=== PATIENT | male | born 1940 | race Caucasian/White ===

== ENCOUNTER 2019-05-16 02:36 | Observation (INO) ==
[2019-05-16 03:21] LABS: Basophils % 0.7 %; Eosinophils # 0.2 K/mcL (0.0-0.6); Eosinophils % 3.2 %; Hemoglobin 15.8 g/dL (12.9-16.9); Immature Granulocytes % 0.7 % (0-4); Lymphocytes # 2.3 K/mcL (0.6-4.6); Lymphocytes % 39.7 %; Mean Corpuscular HGB Conc 35.1 g/dL (31.6-35.5); Mean Corpuscular Hemoglobin 32.2 pg (28.0-33.3); Mean Corpuscular Volume 91.8 fL (83.0-100.0); Mean Platelet Volume 9.9 fL (9.4-12.4); Monocytes # 0.8 K/mcL (0.0-1.3); Monocytes % 13.2 %; Neutrophils # 2.5 K/mcL (1.6-8.9); Platelet Count 203 K/mcL (140-400); Red Cell Distribution Width 12.1 % (11.5-14.5); Segmented Neutrophils % 42.5 %; White Blood Count 5.9 K/mcL (4.3-11.1)
[2019-05-16 03:39] LABS: Alanine Aminotransferase 15 Units/L (7-52); Albumin 4.2 g/dL (3.5-5.7); Albumin/Globulin Ratio 1.6 (1.1-2.2); Alkaline Phosphatase 101 Units/L (34-104); Aspartate Amino Transferase 16 Units/L (13-39); BUN/Creatinine Ratio 21 (6-26); Bilirubin,Total 0.3 mg/dL (0.3-1.0); Blood Urea Nitrogen 21 mg/dL (8-23); Calcium 9.5 mg/dL (8.6-10.3); Carbon Dioxide 27 mEq/L (23-29); Chloride 105 mEq/L (98-107); Globulin 2.7 g/dL (2.4-3.5); Glucose 101 mg/dL (70-105); Osmolality,Calculated 297 (280-300); Potassium 4.1 mEq/L (3.5-5.1); Sodium 142 mEq/L (136-145); Total Protein 6.9 g/dL (6.4-8.9); eGFR For African Americans > 60 (> 60); eGFR For Non-African Americans > 60 (> 60)
[2019-05-16 03:40] LABS: Troponin I < 0.03 ng/mL (< 0.04)
[2019-05-16] MEDS ORDERED: 0.9 % Sodium Chloride 1,000 ML IVC SCH (09:00)
[2019-05-16] MEDS: Carbamide Peroxide 150 DROP/15 ML BOTTLE RIGHT EAR SCH ×2 (11:33→19:58)
[2019-05-16] MEDS: *HR* Heparin 5,000 UNIT/ML VIAL SQ SCH ×2 (14:48→22:36)
[2019-05-17] MEDS: *HR* Heparin 5,000 UNIT/ML VIAL SQ SCH (05:51)
[2019-05-17] MEDS: Carbamide Peroxide 150 DROP/15 ML BOTTLE RIGHT EAR SCH (08:00)
[2019-05-17 12:04] VITALS: BP 143/74
== END 2019-05-17 13:39 | disposition home or self-care (01) ==
LOC: SUATTDRO → 2ANU 02:36 → EMEROOARM 02:36 → SUATTDRO 08:36 → 2ANU 09:37
PROVIDERS: ADMIT Family Medicine; ATTEND Internal Medicine

== ENCOUNTER 2020-07-23 10:25 | Inpatient (IN) ==
[~2020-07-23 10:25] MED LIST: Dextrose 50 % in Water (Vial) 30 ML, Sodium Bicarbonate 20 MEQ, Lidocaine 1% 5 ML, Insu... TH ONE; Dextrose 50 % in Water (Vial) 30 ML, Sodium Bicarbonate 20 MEQ, Potassium Chloride 15 M... TH ONE; Heparin 15,000 UNIT in 0.9 % Sodium Chloride 500 ML IV ONE; Insulin Human Regular 100 UNIT in 0.9 % Sodium Chloride 100 ML IV PRN; Norepinephrine 4 MG in 0.9 % Sodium Chloride 250 ML IVC PRN
[2020-07-23] MEDS ORDERED: NiCARdipine 2.5 MG/10 ML Syringe IVPB ONE (10:35)
[2020-07-23] MEDS ORDERED: *HR* Midazolam HCl 5 MG/5 ML VIAL IVP ONE (10:37)
[2020-07-23] MEDS ORDERED: *HR* FentaNYL (PF) 1,000 MCG/20 ML VIAL ONE ×2 (10:37→10:41)
[2020-07-23] MEDS ORDERED: *HR* Propofol 200 MG/20 ML VIAL IVP ONE (10:38)
[2020-07-23] MEDS ORDERED: *HR* Rocuronium Bromide 50 MG/5 ML VIAL ONE ×3 (10:45→15:52)
[2020-07-23] MEDS ORDERED: Famotidine 20 MG/2 ML VIAL ONE (10:45)
[2020-07-23] MEDS ORDERED: *HR* Magnesium Sulfate 1 GM/2 ML VIAL ONE (10:45)
[2020-07-23] MEDS ORDERED: Lidocaine 2% Syringe 100 MG/5 ML ONE (10:45)
[2020-07-23] MEDS ORDERED: Tranexamic Acid 1,000 MG/10 ML VIAL ONE (10:45)
[2020-07-23] MEDS ORDERED: CeFAZolin Syr 2,000MG/20 ML 2,000 MG/20 ML SYRINGE IVPB ONE (10:52)
[2020-07-23] MEDS ORDERED: Aspirin 81 MG TAB.CHEW PO STA (10:52)
[2020-07-23] MEDS: Chlorhexidine Rinse 15 ML MOUTHWASH MM SCH ×3 (11:31→20:14)
[2020-07-23] MEDS ORDERED: Albumin Human 25% 25 GM/100 ML IV.SOLN IVPB ONE (11:56)
[2020-07-23] MEDS ORDERED: Tranexamic Acid 1,000 MG/10 ML VIAL IR ONE (11:56)
[2020-07-23] MEDS ORDERED: Mannitol 25% vial 12.5 GM/50 ML VIAL IVPB ONE (11:56)
[2020-07-23] MEDS ORDERED: Lidocaine 2% Syringe 100 MG/5 ML IVP ONE (11:56)
[2020-07-23] MEDS ORDERED: *HR* Magnesium Sulfate 2 GM/50 ML PIGGYBACK IVPB ONE (11:56)
[2020-07-23] MEDS ORDERED: *HR* Phenylephrine 10 MG/ML VIAL IVC ONE (11:56)
[2020-07-23] MEDS ORDERED: *HR* Heparin 10,000 UNIT/10 ML VIAL IR ONE (11:56)
[2020-07-23 12:44] LABS: ABG Base Excess 0 mEq/L (-2 to 3); ABG Chloride 107 mEq/L (98-107); ABG Glucose 87 mg/dL (60-95); ABG HCO3 26 mEq/L (21-27); ABG Ionized Calcium 1.24 mmol/L (1.15-1.35); ABG Oxygen Saturation 100 % (95-98); ABG PCO2 45 mmHg (35-45); ABG PH 7.37 pH Units (7.32-7.45); ABG PO2 365 mmHg (85-104); ABG TCO2 27 mEq/L (20-26)
[2020-07-23 13:54] LABS: ABG Base Excess -1 mEq/L (-2 to 3); ABG Chloride 109 mEq/L (98-107); ABG Glucose 95 mg/dL (60-95); ABG HCO3 24 mEq/L (21-27); ABG Ionized Calcium 1.12 mmol/L (1.15-1.35); ABG Oxygen Saturation 100 % (95-98); ABG PCO2 39 mmHg (35-45); ABG PH 7.39 pH Units (7.32-7.45); ABG PO2 222 mmHg (85-104); ABG TCO2 25 mEq/L (20-26)
[2020-07-23 15:40] LABS: ABG Base Excess 0 mEq/L (-2 to 3); ABG Chloride 104 mEq/L (98-107); ABG Glucose 131 mg/dL (60-95); ABG HCO3 25 mEq/L (21-27); ABG Oxygen Saturation 100 % (95-98); ABG PCO2 41 mmHg (35-45); ABG PH 7.39 pH Units (7.32-7.45); ABG PO2 542 mmHg (85-104); ABG TCO2 26 mEq/L (20-26)
[2020-07-23] MEDS ORDERED: Calcium Gluconate 1,000 MG/10 ML VIAL ONE (15:41)
[2020-07-23] MEDS ORDERED: Protamine Sulfate 250 MG/25 ML VIAL IVP ONE (15:41)
[2020-07-23 16:08] LABS: ABG Base Excess -2 mEq/L (-2 to 3); ABG Chloride 107 mEq/L (98-107); ABG Glucose 100 mg/dL (60-95); ABG HCO3 23 mEq/L (21-27); ABG Ionized Calcium 1.18 mmol/L (1.15-1.35); ABG Oxygen Saturation 90 % (95-98); ABG PCO2 41 mmHg (35-45); ABG PH 7.36 pH Units (7.32-7.45); ABG PO2 61 mmHg (85-104); ABG TCO2 24 mEq/L (20-26)
[2020-07-23] MEDS ORDERED: Potassium Chloride 40 MEQ/200 ML BAG IVPB PRN (16:21)
[2020-07-23] MEDS ORDERED: Ondansetron 4 MG/2 ML VIAL IVP PRN (16:21)
[2020-07-23] MEDS ORDERED: Acetaminophen 650 MG RECTAL SUPP RC PRN (16:21)
[2020-07-23] MEDS ORDERED: Naloxone 0.4 MG/ML INJ IVP PRN (16:21)
[2020-07-23] MEDS ORDERED: Acetaminophen 325 MG TABLET PO PRN (16:21)
[2020-07-23] MEDS ORDERED: Calcium Gluconate 1gm/50mL 1 GM/50 ML BAG IVPB PRN (16:21)
[2020-07-23] MEDS ORDERED: Insulin Regular, Human 100 UNIT/ML IV PRN (16:21)
[2020-07-23] MEDS ORDERED: *HR* Dextrose 50 % in Water (Vial) 50 ML VIAL IVP PRN (16:21)
[2020-07-23] MEDS ORDERED: Albumin Human 5% 12.5 GM/250 ML IV.SOLN IVPB PRN (16:27)
[2020-07-23] MEDS ORDERED: 0.9 % Sodium Chloride w KCl 20 MEQ/1,000 ML MLS IVC SCH (16:30)
[2020-07-23 17:24] LABS: ABG Base Excess -2 mEq/L (-2 to 3); ABG HCO3 24 mEq/L (21-27); ABG Oxygen Saturation 95 % (95-98); ABG PCO2 45 mmHg (35-45); ABG PH 7.34 pH Units (7.32-7.45); ABG PO2 80 mmHg (85-104); ABG TCO2 26 mEq/L (20-26); Blood Gas Modality ASSIST CONTROL; Blood Gas VT 550 cc
[2020-07-23 17:28] LABS: Basophils % 0.3 %; Eosinophils % 0.3 %; Hematocrit 34.8 % (37.5-50.1); Hemoglobin 11.3 g/dL (12.9-16.9); Immature Platelets 4.2 % (1.1-6.1); Lymphocytes # 2.1 K/mcL (0.6-4.6); Lymphocytes % 18.6 %; Mean Corpuscular HGB Conc 32.5 g/dL (31.6-35.5); Mean Corpuscular Hemoglobin 29.3 pg (28.0-33.3); Mean Corpuscular Volume 90.2 fL (83.0-100.0); Mean Platelet Volume 9.9 fL (9.4-12.4); Monocytes # 1.1 K/mcL (0.0-1.3); Monocytes % 9.5 %; Neutrophils # 8.1 K/mcL (1.6-8.9); Platelet Count 103 K/mcL (140-400); Red Blood Count 3.86 M/mcL (4.19-5.50); Red Cell Distribution Width 12.5 % (11.5-14.5); Segmented Neutrophils % 70.3 %; White Blood Count 11.5 K/mcL (4.3-11.1)
[2020-07-23 17:35] LABS: INR 1.4; Prothrombin Time 15.9 Seconds (9.4-12.1)
[2020-07-23 17:39] LABS: Activated Partial Thrombo Time 28.9 Seconds (26.0-36.0)
[2020-07-23 17:41] LABS: BUN/Creatinine Ratio 20 (6-26); Blood Urea Nitrogen 19 mg/dL (8-23); Calcium 8.5 mg/dL (8.6-10.3); Carbon Dioxide 28 mEq/L (23-29); Chloride 109 mEq/L (98-107); Glucose 97 mg/dL (70-105); Magnesium 3.4 mg/dL (1.6-2.6); Osmolality,Calculated 294 (280-300); Potassium 3.7 mEq/L (3.5-5.1); Sodium 141 mEq/L (136-145); eGFR For African Americans > 60 (> 60); eGFR For Non-African Americans > 60 (> 60)
[2020-07-23] MEDS: niCARdipine 20 MG/200 ML MLS IVC SCH ×2 (17:45→21:30)
[2020-07-23] MEDS: Metoclopramide 10 MG/2 ML VIAL IVP SCH ×2 (17:57→23:42)
[2020-07-23] MEDS: *HR* FentaNYL (PF) 100 MCG/2 ML VIAL IVP PRN ×3 (17:58→23:08)
[2020-07-23] MEDS: Pantoprazole 40 MG VIAL IVP SCH (18:05)
[2020-07-23] MEDS: *HR* OxyCODONE/APAP 5/325 TABLET PO PRN ×2 (18:59→21:30)
[2020-07-23] MEDS: Norepinephrine 4 MG/254 ML IV.SOLN IVC SCH (20:08)
[2020-07-23] MEDS: CeFAZolin 2 GM/120 ML BAG IVPB SCH (20:09)
[2020-07-23 20:36] LABS: ABG Base Excess -4 mEq/L (-2 to 3); ABG HCO3 21 mEq/L (21-27); ABG Oxygen Saturation 97 % (95-98); ABG PCO2 39 mmHg (35-45); ABG PH 7.34 pH Units (7.32-7.45); ABG PO2 98 mmHg (85-104); ABG TCO2 23 mEq/L (20-26); Blood Gas Modality CPAP/PS; Blood Gas Pressure Support 5 cm H2O
[2020-07-23 21:04] LABS: ABG Base Excess -3 mEq/L (-2 to 3); ABG HCO3 22 mEq/L (21-27); ABG Oxygen Saturation 99 % (95-98); ABG PCO2 40 mmHg (35-45); ABG PH 7.36 pH Units (7.32-7.45); ABG PO2 132 mmHg (85-104); ABG TCO2 24 mEq/L (20-26); Blood Gas Modality CPAP/PS; Blood Gas Pressure Support 5 cm H2O
[2020-07-24] MEDS: niCARdipine 20 MG/200 ML MLS IVC SCH ×8 (02:47→23:18)
[2020-07-24] MEDS: CeFAZolin 2 GM/120 ML BAG IVPB SCH (03:04)
[2020-07-24 03:07] LABS: Basophils % 0.1 %; Hematocrit 31.9 % (37.5-50.1); Hemoglobin 10.7 g/dL (12.9-16.9); Immature Granulocytes % 0.7 % (0-4); Lymphocytes # 1.2 K/mcL (0.6-4.6); Lymphocytes % 8.7 %; Mean Corpuscular HGB Conc 33.5 g/dL (31.6-35.5); Mean Corpuscular Hemoglobin 29.8 pg (28.0-33.3); Mean Corpuscular Volume 88.9 fL (83.0-100.0); Mean Platelet Volume 10.1 fL (9.4-12.4); Monocytes # 1.7 K/mcL (0.0-1.3); Monocytes % 12.6 %; Neutrophils # 10.7 K/mcL (1.6-8.9); Platelet Count 103 K/mcL (140-400); Red Blood Count 3.59 M/mcL (4.19-5.50); Red Cell Distribution Width 12.7 % (11.5-14.5); Segmented Neutrophils % 77.9 %; White Blood Count 13.7 K/mcL (4.3-11.1)
[2020-07-24 03:19] LABS: INR 1.3; Prothrombin Time 14.7 Seconds (9.4-12.1)
[2020-07-24 03:21] LABS: Activated Partial Thrombo Time 27.1 Seconds (26.0-36.0)
[2020-07-24 04:29] LABS: BUN/Creatinine Ratio 24 (6-26); Blood Urea Nitrogen 24 mg/dL (8-23); Calcium 8.1 mg/dL (8.6-10.3); Carbon Dioxide 23 mEq/L (23-29); Chloride 106 mEq/L (98-107); Glucose 145 mg/dL (70-105); Magnesium 2.4 mg/dL (1.6-2.6); Osmolality,Calculated 289 (280-300); Sodium 136 mEq/L (136-145); eGFR For African Americans > 60 (> 60); eGFR For Non-African Americans > 60 (> 60)
[2020-07-24] MEDS: *HR* FentaNYL (PF) 100 MCG/2 ML VIAL IVP PRN ×2 (04:36→10:39)
[2020-07-24] MEDS: Metoclopramide 10 MG/2 ML VIAL IVP SCH ×4 (05:13→23:13)
[2020-07-24] MEDS: Aspirin Enteric Coated 81 MG Tablet PO SCH (07:48)
[2020-07-24] MEDS: *HR* OxyCODONE/APAP 5/325 TABLET PO PRN (07:48)
[2020-07-24] MEDS: Furosemide 20 MG/2 ML VIAL IVP SCH ×2 (07:48→20:25)
[2020-07-24] MEDS: Chlorhexidine Rinse 15 ML MOUTHWASH MM SCH ×2 (07:48→20:25)
[2020-07-24] MEDS: Pantoprazole 40 MG VIAL IVP SCH (07:49)
[2020-07-24] MEDS ORDERED: D5% in Water 1,000 ML IVC PRN (07:52)
[2020-07-24] MEDS ORDERED: Dextrose Gel 15 GM/37.5 ML TUBE PO PRN ×2 (07:52)
[2020-07-24] MEDS ORDERED: *HR* Dextrose 50 % in Water (Vial) 50 ML VIAL IVP PRN (07:52)
[2020-07-24] MEDS: ALPRAZolam 0.5 MG TABLET PO PRN ×2 (08:45→20:25)
[2020-07-24] MEDS: *HR* Heparin 5,000 UNIT/ML VIAL SQ SCH ×2 (10:59→18:39)
[2020-07-24] MEDS: Ketorolac 15 MG/ML VIAL IVP SCH ×3 (11:00→23:12)
[2020-07-24] MEDS: Norepinephrine 4 MG/254 ML IV.SOLN IVC SCH (15:35)
[2020-07-24] MEDS: Insulin LISPRO 300 UNITS/3 ML VIAL SUBQ SCH (16:35)
[2020-07-24] MEDS ORDERED: Insulin LISPRO 300 UNITS/3 ML VIAL SUBQ SCH (21:00)
[2020-07-25 03:19] LABS: Eosinophils % 0.1 %; Hematocrit 28.2 % (37.5-50.1); Immature Granulocytes % 0.4 % (0-4); Mean Platelet Volume 10.5 fL (9.4-12.4); Segmented Neutrophils % 71.6 %
[2020-07-25 03:21] LABS: Basophils % 0.3 %; Hemoglobin 9.2 g/dL (12.9-16.9); Immature Platelets 5.8 % (1.1-6.1); Lymphocytes # 1.4 K/mcL (0.6-4.6); Lymphocytes % 13.2 %; Mean Corpuscular HGB Conc 32.6 g/dL (31.6-35.5); Mean Corpuscular Hemoglobin 29.2 pg (28.0-33.3); Mean Corpuscular Volume 89.5 fL (83.0-100.0); Monocytes # 1.5 K/mcL (0.0-1.3); Monocytes % 14.4 %; Neutrophils # 7.4 K/mcL (1.6-8.9); Red Blood Count 3.15 M/mcL (4.19-5.50); Red Cell Distribution Width 13.1 % (11.5-14.5); White Blood Count 10.3 K/mcL (4.3-11.1)
[2020-07-25 03:34] LABS: BUN/Creatinine Ratio 29 (6-26); Blood Urea Nitrogen 35 mg/dL (8-23); Calcium 7.8 mg/dL (8.6-10.3); Carbon Dioxide 25 mEq/L (23-29); Chloride 105 mEq/L (98-107); Glucose 105 mg/dL (70-105); Osmolality,Calculated 290 (280-300); Potassium 4.2 mEq/L (3.5-5.1); Sodium 136 mEq/L (136-145); eGFR For African Americans > 60 (> 60); eGFR For Non-African Americans 57 (> 60)
[2020-07-25 04:13] LABS: Platelet Count 80 K/mcL (140-400)
[2020-07-25] MEDS: Metoclopramide 10 MG/2 ML VIAL IVP SCH (05:17)
[2020-07-25] MEDS: Ketorolac 15 MG/ML VIAL IVP SCH (05:17)
[2020-07-25] MEDS: *HR* Heparin 5,000 UNIT/ML VIAL SQ SCH ×2 (05:17→20:04)
[2020-07-25] MEDS: Insulin LISPRO 300 UNITS/3 ML VIAL SUBQ SCH ×4 (08:18→20:05)
[2020-07-25] MEDS ORDERED: polyethylene glycoL 3350 17 GM POWD.PACK PO SCH (09:00)
[2020-07-25] MEDS: Chlorhexidine Rinse 15 ML MOUTHWASH MM SCH ×2 (09:07→20:13)
[2020-07-25] MEDS: Aspirin Enteric Coated 81 MG Tablet PO SCH (09:07)
[2020-07-25] MEDS: niCARdipine 20 MG/200 ML MLS IVC SCH (09:07)
[2020-07-25] MEDS: Pantoprazole 40 MG VIAL IVP SCH (09:08)
[2020-07-25] MEDS: Furosemide 20 MG/2 ML VIAL IVP SCH (09:08)
[2020-07-25] MEDS ORDERED: Docusate Oral Soln 100 MG/10 ML UDC PO SCH (09:21)
[2020-07-25] MEDS ORDERED: Amiodarone Premix 150 MG/100 ML BAG IVPB ONE ×3 (09:22→09:30)
[2020-07-25] MEDS ORDERED: Naloxone 0.4 MG/ML INJ IVP PRN (09:23)
[2020-07-25] MEDS ORDERED: Dextrose Gel 15 GM/37.5 ML TUBE PO PRN (09:23)
[2020-07-25] MEDS ORDERED: Acetaminophen 325 MG TABLET PO PRN (09:23)
[2020-07-25] MEDS ORDERED: *HR* Dextrose 50 % in Water (Vial) 50 ML VIAL IVP PRN (09:23)
[2020-07-25] MEDS ORDERED: Insulin Regular, Human 100 UNIT/ML IV PRN (09:23)
[2020-07-25] MEDS ORDERED: Amiodarone Premix 360 MG/200 ML BAG IVC ONE ×2 (09:38→09:43)
[2020-07-25] MEDS: ALPRAZolam 0.5 MG TABLET PO PRN (11:03)
[2020-07-25] MEDS: Amiodarone Premix 360 MG/200 ML BAG IVC SCH (15:43)
[2020-07-26] MEDS: ALPRAZolam 0.5 MG TABLET PO PRN (04:04)
[2020-07-26] MEDS: *HR* Heparin 5,000 UNIT/ML VIAL SQ SCH (06:08)
[2020-07-26 06:16] LABS: Basophils % 0.2 %
[2020-07-26 06:18] LABS: Eosinophils % 0.3 %; Hematocrit 27.2 % (37.5-50.1); Hemoglobin 9.2 g/dL (12.9-16.9); Immature Granulocytes % 0.6 % (0-4); Immature Platelets 6.4 % (1.1-6.1); Lymphocytes # 1.1 K/mcL (0.6-4.6); Lymphocytes % 9.9 %; Mean Corpuscular HGB Conc 33.8 g/dL (31.6-35.5); Mean Corpuscular Hemoglobin 29.8 pg (28.0-33.3); Mean Platelet Volume 10.7 fL (9.4-12.4); Monocytes # 1.4 K/mcL (0.0-1.3); Neutrophils # 8.8 K/mcL (1.6-8.9); Nucleated Red Blood Cells 1.2 /100 WBC (0); Platelet Count 82 K/mcL (140-400); Red Blood Count 3.09 M/mcL (4.19-5.50); Red Cell Distribution Width 13.3 % (11.5-14.5); White Blood Count 11.4 K/mcL (4.3-11.1)
[2020-07-26 08:00] LABS: BUN/Creatinine Ratio 30 (6-26); Blood Urea Nitrogen 33 mg/dL (8-23); Calcium 8.5 mg/dL (8.6-10.3); Carbon Dioxide 26 mEq/L (23-29); Chloride 98 mEq/L (98-107); Glucose 117 mg/dL (70-105); Osmolality,Calculated 280 (280-300); Potassium 4.1 mEq/L (3.5-5.1); Sodium 131 mEq/L (136-145); eGFR For African Americans > 60 (> 60); eGFR For Non-African Americans > 60 (> 60)
[2020-07-26] MEDS: Pantoprazole 40 MG VIAL IVP SCH (08:21)
[2020-07-26] MEDS: Chlorhexidine Rinse 15 ML MOUTHWASH MM SCH ×2 (08:21→20:21)
[2020-07-26] MEDS: Ondansetron 4 MG/2 ML VIAL IVP PRN (08:22)
[2020-07-26] MEDS: Insulin LISPRO 300 UNITS/3 ML VIAL SUBQ SCH ×4 (08:23→20:21)
[2020-07-26] MEDS ORDERED: 0.9 % Sodium Chloride 500 ML ONE (09:04)
[2020-07-26] MEDS: Aspirin Enteric Coated 81 MG Tablet PO SCH (11:40)
[2020-07-26] MEDS: polyethylene glycoL 3350 17 GM POWD.PACK PO SCH (11:40)
[2020-07-26] MEDS: Amiodarone Premix 360 MG/200 ML BAG IVC SCH (14:18)
[2020-07-26] MEDS ORDERED: Furosemide 20 MG/2 ML VIAL IVP ONE (14:54)
[2020-07-26] MEDS: Ibuprofen 600 MG TABLET PO PRN (15:28)
[2020-07-27 00:51] LABS: Basophils % 0.4 %; Eosinophils # 0.2 K/mcL (0.0-0.6); Eosinophils % 2.6 %; Hematocrit 32.7 % (37.5-50.1); Hemoglobin 10.4 g/dL (12.9-16.9); Immature Granulocytes % 0.5 % (0-4); Lymphocytes # 1.4 K/mcL (0.6-4.6); Lymphocytes % 14.5 %; Mean Corpuscular HGB Conc 31.8 g/dL (31.6-35.5); Mean Corpuscular Hemoglobin 29.6 pg (28.0-33.3); Mean Corpuscular Volume 93.2 fL (83.0-100.0); Mean Platelet Volume 11.6 fL (9.4-12.4); Monocytes # 1.4 K/mcL (0.0-1.3); Monocytes % 14.7 %; Neutrophils # 6.3 K/mcL (1.6-8.9); Platelet Count 102 K/mcL (140-400); Red Blood Count 3.51 M/mcL (4.19-5.50); Red Cell Distribution Width 13.2 % (11.5-14.5); Segmented Neutrophils % 67.3 %; White Blood Count 9.4 K/mcL (4.3-11.1)
[2020-07-27 01:28] LABS: BUN/Creatinine Ratio 28 (6-26); Blood Urea Nitrogen 32 mg/dL (8-23); Calcium 8.5 mg/dL (8.6-10.3); Carbon Dioxide 18 mEq/L (23-29); Chloride 100 mEq/L (98-107); Glucose 117 mg/dL (70-105); Osmolality,Calculated 280 (280-300); Potassium 4.5 mEq/L (3.5-5.1); Sodium 131 mEq/L (136-145); eGFR For African Americans > 60 (> 60); eGFR For Non-African Americans > 60 (> 60)
[2020-07-27] MEDS: Insulin LISPRO 300 UNITS/3 ML VIAL SUBQ SCH ×4 (08:12→20:43)
[2020-07-27] MEDS: polyethylene glycoL 3350 17 GM POWD.PACK PO SCH (08:37)
[2020-07-27] MEDS: Aspirin Enteric Coated 81 MG Tablet PO SCH (08:37)
[2020-07-27] MEDS: Chlorhexidine Rinse 15 ML MOUTHWASH MM SCH ×2 (08:38→21:31)
[2020-07-27] MEDS: Pantoprazole 40 MG VIAL IVP SCH (08:38)
[2020-07-27] MEDS: Furosemide 40 MG TABLET PO SCH (10:03)
[2020-07-27] MEDS: *HR* Amiodarone 200 MG TABLET PO SCH ×2 (10:03→21:30)
[2020-07-27] MEDS: *HR* Heparin 5,000 UNIT/ML VIAL SQ SCH (16:17)
[2020-07-28] MEDS: *HR* Heparin 5,000 UNIT/ML VIAL SQ SCH ×2 (05:08→17:05)
[2020-07-28] MEDS: Insulin LISPRO 300 UNITS/3 ML VIAL SUBQ SCH ×4 (08:48→20:42)
[2020-07-28] MEDS: Pantoprazole 40 MG VIAL IVP SCH (08:57)
[2020-07-28] MEDS: Aspirin Enteric Coated 81 MG Tablet PO SCH (08:57)
[2020-07-28] MEDS: polyethylene glycoL 3350 17 GM POWD.PACK PO SCH (08:57)
[2020-07-28] MEDS: Furosemide 40 MG TABLET PO SCH (08:57)
[2020-07-28] MEDS: *HR* Amiodarone 200 MG TABLET PO SCH ×2 (08:57→21:15)
[2020-07-28] MEDS: Chlorhexidine Rinse 15 ML MOUTHWASH MM SCH ×2 (08:57→21:13)
[2020-07-28] MEDS ORDERED: ALPRAZolam 0.25 MG TABLET PO PRN (13:39)
[2020-07-28] MEDS: Ibuprofen 600 MG TABLET PO PRN (21:15)
[2020-07-29 01:54] LABS: Basophils % 0.4 %; Eosinophils # 0.3 K/mcL (0.0-0.6); Eosinophils % 6.3 %; Hematocrit 23.8 % (37.5-50.1); Immature Granulocytes % 0.8 % (0-4); Lymphocytes # 0.8 K/mcL (0.6-4.6); Lymphocytes % 16.3 %; Mean Corpuscular HGB Conc 32.4 g/dL (31.6-35.5); Mean Corpuscular Hemoglobin 29.2 pg (28.0-33.3); Mean Corpuscular Volume 90.2 fL (83.0-100.0); Mean Platelet Volume 10.6 fL (9.4-12.4); Monocytes # 1.1 K/mcL (0.0-1.3); Monocytes % 20.6 %; Neutrophils # 2.8 K/mcL (1.6-8.9); Platelet Count 157 K/mcL (140-400); Red Blood Count 2.64 M/mcL (4.19-5.50); Red Cell Distribution Width 13.2 % (11.5-14.5); Segmented Neutrophils % 55.6 %; White Blood Count 5.1 K/mcL (4.3-11.1)
[2020-07-29 02:02] LABS: BUN/Creatinine Ratio 24 (6-26); Blood Urea Nitrogen 26 mg/dL (8-23); Calcium 8.2 mg/dL (8.6-10.3); Carbon Dioxide 26 mEq/L (23-29); Chloride 100 mEq/L (98-107); Glucose 124 mg/dL (70-105); Hemoglobin 7.7 g/dL (12.9-16.9); Osmolality,Calculated 282 (280-300); Potassium 3.9 mEq/L (3.5-5.1); Sodium 133 mEq/L (136-145); eGFR For African Americans > 60 (> 60); eGFR For Non-African Americans > 60 (> 60)
[2020-07-29] MEDS: *HR* Heparin 5,000 UNIT/ML VIAL SQ SCH ×2 (05:56→17:35)
[2020-07-29] MEDS: Aspirin Enteric Coated 81 MG Tablet PO SCH (07:37)
[2020-07-29] MEDS: Furosemide 40 MG TABLET PO SCH (07:37)
[2020-07-29] MEDS: Chlorhexidine Rinse 15 ML MOUTHWASH MM SCH ×2 (07:38→21:35)
[2020-07-29] MEDS: Pantoprazole 40 MG VIAL IVP SCH (07:38)
[2020-07-29] MEDS: *HR* Amiodarone 200 MG TABLET PO SCH ×2 (07:38→21:34)
[2020-07-29] MEDS: polyethylene glycoL 3350 17 GM POWD.PACK PO SCH (07:38)
[2020-07-29] MEDS: Insulin LISPRO 300 UNITS/3 ML VIAL SUBQ SCH ×4 (08:47→21:34)
[2020-07-29] MEDS: Ibuprofen 600 MG TABLET PO PRN (17:34)
[2020-07-29] MEDS: ALPRAZolam 0.5 MG TABLET PO PRN (21:33)
[2020-07-30 03:11] LABS: Basophils % 0.7 %; Eosinophils # 0.4 K/mcL (0.0-0.6); Eosinophils % 9.7 %; Hematocrit 26.9 % (37.5-50.1); Hemoglobin 8.9 g/dL (12.9-16.9); Lymphocytes # 0.8 K/mcL (0.6-4.6); Lymphocytes % 19.2 %; Mean Corpuscular HGB Conc 33.1 g/dL (31.6-35.5); Mean Corpuscular Hemoglobin 30.3 pg (28.0-33.3); Mean Corpuscular Volume 91.5 fL (83.0-100.0); Monocytes # 0.8 K/mcL (0.0-1.3); Monocytes % 19.9 %; Platelet Count 193 K/mcL (140-400); Red Blood Count 2.94 M/mcL (4.19-5.50); Red Cell Distribution Width 13.2 % (11.5-14.5); Segmented Neutrophils % 49.5 %
[2020-07-30 03:31] LABS: BUN/Creatinine Ratio 22 (6-26); Blood Urea Nitrogen 23 mg/dL (8-23); Calcium 8.5 mg/dL (8.6-10.3); Carbon Dioxide 28 mEq/L (23-29); Chloride 103 mEq/L (98-107); Glucose 99 mg/dL (70-105); Osmolality,Calculated 288 (280-300); Potassium 3.9 mEq/L (3.5-5.1); Sodium 137 mEq/L (136-145); eGFR For African Americans > 60 (> 60); eGFR For Non-African Americans > 60 (> 60)
[2020-07-30 04:23] LABS: Platelet Estimate Normal (Normal)
[2020-07-30] MEDS: *HR* Heparin 5,000 UNIT/ML VIAL SQ SCH ×2 (05:28→18:41)
[2020-07-30] MEDS: Pantoprazole 40 MG VIAL IVP SCH (09:02)
[2020-07-30] MEDS: Chlorhexidine Rinse 15 ML MOUTHWASH MM SCH ×2 (09:03→21:16)
[2020-07-30] MEDS: Aspirin Enteric Coated 81 MG Tablet PO SCH (09:03)
[2020-07-30] MEDS: polyethylene glycoL 3350 17 GM POWD.PACK PO SCH (09:03)
[2020-07-30] MEDS: Furosemide 40 MG TABLET PO SCH (09:03)
[2020-07-30] MEDS: *HR* Amiodarone 200 MG TABLET PO SCH ×2 (09:03→21:17)
[2020-07-30] MEDS: Insulin LISPRO 300 UNITS/3 ML VIAL SUBQ SCH ×4 (09:04→21:17)
[2020-07-30] MEDS: Ibuprofen 600 MG TABLET PO PRN (16:00)
[2020-07-30] MEDS: Ondansetron 4 MG/2 ML VIAL IVP PRN (23:25)
[2020-07-31] MEDS: ALPRAZolam 0.5 MG TABLET PO PRN (01:10)
[2020-07-31] MEDS: *HR* Heparin 5,000 UNIT/ML VIAL SQ SCH (05:20)
[2020-07-31] MEDS: *HR* Amiodarone 200 MG TABLET PO SCH (09:23)
[2020-07-31] MEDS: Aspirin Enteric Coated 81 MG Tablet PO SCH (09:23)
[2020-07-31] MEDS: Furosemide 40 MG TABLET PO SCH (09:24)
[2020-07-31] MEDS: polyethylene glycoL 3350 17 GM POWD.PACK PO SCH (09:25)
[2020-07-31] MEDS: Chlorhexidine Rinse 15 ML MOUTHWASH MM SCH (09:25)
[2020-07-31] MEDS: Pantoprazole 40 MG VIAL IVP SCH (09:25)
[2020-07-31] MEDS: Insulin LISPRO 300 UNITS/3 ML VIAL SUBQ SCH ×2 (09:48→11:28)
[2020-07-31 16:04] VITALS: BP 111/59; PULSE 79; TEMP 98.2; O2SAT 93
[2020-07-31 16:46] LABS: Adenovirus Not Detected (Not Detect); Bordetella Pertussis Not Detected (Not Detect); Chlamydophila pneumoniae Not Detected (Not Detect); Coronavirus 229E Not Detected (Not Detect); Coronavirus HKU1 Not Detected (Not Detect); Coronavirus NL63 Not Detected (Not Detect); Coronavirus OC43 Not Detected (Not Detect); Human Metapneumovirus Not Detected (Not Detect); Human Rhinovirus/Enterovirus Not Detected (Not Detect); Influenza A Subtype 2009 H1 Not Detected (Not Detect); Influenza B Not Detected (Not Detect); Mycoplasma pneumoniae Not Detected (Not Detect); Parainfluenza Virus 1 Not Detected (Not Detect); Parainfluenza Virus 2 Not Detected (Not Detect); Parainfluenza Virus 3 Not Detected (Not Detect); Parainfluenza Virus 4 Not Detected (Not Detect); Respiratory Syncytial Virus Not Detected (Not Detect); SARS-CoV-2 Not Detected (Not Detect)
== END 2020-07-31 19:23 | DRG 228 ==
LOC: SAMDAY 10:25 → ICNU 17:34 → 2NNU 07-25 15:05
PROVIDERS: ADMIT Thoracic Surgery (Cardiothoracic Vascular Surgery); ATTEND Thoracic Surgery (Cardiothoracic Vascular Surgery)